=== PATIENT | female | born 1995 | race Caucasian/White ===

== ENCOUNTER 2016-06-21 09:31 | Emergency (ER) | payer SELFPAY ==
[2016-06-21] MEDS ORDERED: IOPAMIDOL-300 100 ML VIAL IVP ONE (15:37)
== END 2016-06-21 16:32 | disposition home or self-care (01) ==
DX: R10.31 Right lower quadrant pain (principal); R11.2 Nausea with vomiting, unspecified
CPT/HCPCS: 36415; 74177; 76830; 76856; 80053; 81001; 81025; 83690; 85025; 93975; 99283; 99284; Q9967